=== PATIENT | female | born 1950 | race African-American/Black ===

== ENCOUNTER → 2016-10-13 | Outpatient (CLI) | payer OTHER ==
[~2016-10-13] VITALS: Ht 154.9 cm; Wt 129.7 kg
[~2016-10-13] MED LIST: AMLODIPINE BESY10 MG PO; APAP500 PO; BUTRANS1 EAC2 TD; CARBAMAZEPINE200 M5 PO; CENTRUM SILVER1 EAC4 PO; COUMADIN 1MG TAB1 M1 PO; COUMADIN 5 MG TA5 M1 PO; CYMBALTA30 MG PO; HYDRALAZINE 2525 MG PO; LASIX 40 MG TAB40 M2 PO; LISINOPRIL20 MG PO; NORCO 5-325 TA1 EACH PO; QUESTRAN PACKET4 GM PO; TOPROL XL100 MG PO; VITAMIN B-12500 MCG PO; VITAMIN D1000 UNI1 PO
--- NOTE | ~2016-10-13 | HPC ---
[facility] [place] [address] PAIN MANAGEMENT CONSULTATION Name: JOE VANCE Room #: REG [facility] [id number] Admission: 10/13/16 Attend Phys: Morgan Jacques DO Discharge: Date of : 51 Report #: [id number] THIS REPORT FOR: //name// CC: KIMBERLY Jacques HISTORY: The patient is an unfortunate 65-year-old female who was initially seen in consultation, 08/26/2016. The patient was morbidly obese at the time of that consultation. She had a BMI of 52.9 kilograms per meter squared, was complaining primarily of axial back pain, along with pain in her hips, knees and ankles. I started the patient on Butrans patch to 10 mcg q. 7 days and suggested she continue on her Cymbalta ostensibly at 90 mg a day. 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 She returns to the pain clinic today stating that she did not feel that the Butrans patch worked. On further discussion, it turns out that she likely stopped the Cymbalta altogether, perhaps even before I saw her. She states that it "didn't work". It sounds like she did restart her prior SSRI agent (Zoloft 100 mg). She has continued to gain weight. BMI is now up to 54.1 kilograms per meter squared, up approximately 1.2 kilograms per meter squared. She notes pain is ongoing, an 8/10, low back, buttocks with some left leg and left shoulder pain. She describes a deep burning sensation. PHYSICAL EXAMINATION: GENERAL: Shows 65-year-old female, again morbidly obese at 155 cm and 130 kilograms. VITAL SIGNS: Blood pressure is elevated at 181/86, pulse 83 and respirations are 14. MUSCULOSKELETAL: Rises from chair using armrest. Diffuse tenderness across the low back, little bit in the SI area, though no discrete trigger points are noted. We reviewed her diagnostic findings from last year, thoracic and lumbar MRI, noting expected degenerative changes compatible with age-related loss of height. No dramatic stenosis is noted. Lower extremity strength is preserved. Gait is tandem. Lumbar flexion is limited. RECOMMENDATIONS: Long discussion with the patient today about therapeutic options, lifestyle choices and expectations. I stressed that she should not have abruptly stopped her Cymbalta. I stressed that these are not "pain pills", in that they will give her quick short-term relief, but agents that over time should help decrease pain. Our goal is simply [address] [address] PAIN MANAGEMENT CONSULTATION Name: JOE VANCE Giovana Room #: REG [facility] Va#: [id number] Admission: 10/13/16 Attend Phys: Morgan Jacques DO Discharge: Date of : 51 Report #: [id number] to increase functional ability. Given that the patient is back on Zoloft, I suspect that is adequate, though again the combination SSRI and norepinephrine reuptake inhibitors tend to be better for pain, but I cannot make the patient take medications she does not wish to. I did tell her we will increase her Butrans from 10 to 15 mcg. I stressed that we will not be using a short-acting opiate as they have not been shown to fundamentally improve function in patients with simply chronic axial back pain. Again, we spent a prolonged visit today, mostly spent counseling the patient, discussing mechanism of actions of medications, trying to encourage dietary discretion and increased activity. Given the patient's fairly sedentary lifestyle, if we can just get her to walk 30-40 minutes twice a day, I think that would be a good start for her exercise regimen. I again strongly stressed caloric restriction. We will increase Butrans from 10 to 15 mcg q. 7 days and follow up in 4 weeks for reevaluation. Discharged in good and stable condition after prolonged visit. Greater than 50% of this time spent counseling the patient. The patient was seen from approximately 08:00 a.m. to 08:30. <ELECTRONICALLY SIGNED> By: Morgan Jacques DO 10/14/16 0704 0829 1037 Morgan Jacques DO /nt
[2016-10-13 08:04] VITALS: BP 181/86
== END | disposition home or self-care (01) ==
LOC: PAIN 09-22 07:14
DX: M54.16 Radiculopathy, lumbar region (principal); E66.01 Morbid (severe) obesity due to excess calories; Z68.43 Body mass index [BMI] 50.0-59.9, adult; Z87.891 Personal history of nicotine dependence

== ENCOUNTER → 2016-11-24 | Outpatient (CLI) | payer OTHER ==
[~2016-11-24] VITALS: Ht 157.5 cm; Wt 124.7 kg
[~2016-11-24] MED LIST changes: +ZANAFLEX4 MG PO
--- NOTE | ~2016-11-24 | HPC ---
[facility] [address] [address] PAIN MANAGEMENT CONSULTATION Name: RAJIVJOE Giovana [facility] #: [facility] [id number] Admission: 11/24/16 Attend Phys: Morgan Jacques DO Discharge: Date of : 51 Report #: [id number] THIS REPORT FOR: //name// CC: KIMBERLY Jacques HISTORY OF PRESENT ILLNESS: The patient is a 65-year-old female, prior seen in the pain clinic 10/13/2016, diagnosed with axial back pain, myofascial type pain requiring complex medication management. Last visit, I strongly recommended that patient increase physical activity. We increased Butrans from 10-15 mcg q. 7 days. Trialled resuming Cymbalta, which she had abruptly discontinued in the past. He returns to the pain clinic today noting subjective pain score of 4/10, pain primarily right hip, lateral thigh, chronic low back pain down legs, right greater than left. She "plans" start working out at the gym and doing water aerobics via [employer]. She is taking Cymbalta 30 mg q. 8 hours and continuing with Butrans patch at 15 mcg q. 7 days. She uses a cane in her right hand. DIAGNOSTIC STUDIES: Include x-rays of the thoracic and lumbar spine noting lumbar spondylosis and DISH phenomenon of thoracic spine. PHYSICAL EXAMINATION: Shows obese 65-year-old female, BMI is 50.3 kilograms per meter squared. Vital signs show modest hypertension of 159/95, pulse 78, respirations are 18. Alert and oriented to person, place and time, judged to be a reasonable historian. Rises from chair using armrest, mildly antalgic gait, using a cane in her right hand. Diffuse tenderness across the low back. No discrete trigger points are noted. ASSESSMENT: A 65-year-old female with axial back pain, myofascial pain requiring complex medication management, likely component of DJD affecting bilateral knees. RECOMMENDATION: Long discussion about strongly encouraging patient to move forward with her plans to go to the gym, do water aerobics via her [employer]. Continue Cymbalta 30 mg q. 8 hours, Butrans patch 15 mcg q. 7 days and will trial some tizanidine 4 mg one-half tablet t.i.d. with 1 at bedtime. Follow up in 2 months for reevaluation. <ELECTRONICALLY SIGNED> By: Morgan Jacques DO 11/25/16 1308 [id number] [id number] Morgan Jacques DO /nt
[2016-11-24 09:59] VITALS: BP 159/95
== END | disposition home or self-care (01) ==
LOC: PAIN 11-10 07:02
DX: M17.0 Bilateral primary osteoarthritis of knee (principal); M54.9 Dorsalgia, unspecified; M79.1 Myalgia

== ENCOUNTER → 2017-03-16 | Outpatient (CLI) | payer OTHER ==
[~2017-03-16] VITALS: Ht 157.5 cm; Wt 122.5 kg
[~2017-03-16] MED LIST changes: +CYMBALTA60 MG PO
--- NOTE | ~2017-03-16 | HPC ---
[facility] [place] [address] [address] [place] [address] PAIN MANAGEMENT CONSULTATION Name: RAJIVJOE Giovana [facility] #: [facility] [id number] Admission: 03/16/17 Attend Phys: Morgan Jacques DO Discharge: Date of : 51 Report #: [id number] THIS REPORT FOR: //name// CC: KIMBERLY Jacques DATE OF SERVICE: 03/16/2017 The patient is a 66-year-old female being treated for axial back pain, myofascial pain, neuropathic pain component, requiring complex medication management, history of DJDs affecting bilateral knees. The patient returns to pain clinic today, last visit was 11/24/2016. We continued the patient on Butrans 15 mcg q. 7 days, Cymbalta (this prescription has been taken over by her general cleaner physician) and tizanidine 4 mg one-half tablet t.i.d. with 1 to 1-1/2 at bedtime. The patient did run out of her medicine due to scheduling issues. She is without it for about 2 weeks. She notes in retrospect that the Butrans is helping significantly. She returns to pain clinic today noting pain is about 6 on a VAS. Pain is in the low back, both buttocks and legs. Notes, her left hip is probably the worst, but knees are painful as well. She describes a chronic grinding, deep, sharp, aching sensation, rates this 6 on a VAS. The patient notes the pain is exacerbated with standing, walking and sitting. PHYSICAL EXAMINATION: Shows an obese 66-year-old female, very pleasant with a BMI of 49.4 kilograms per meter squared. She does have some left-sided weakness, status post an old CVA. Blood pressure is 156/76, pulse 86, respirations 22. Uses a cane in her right hand. Rises from chair using armrests, antalgic gait, diffuse tenderness across the low back. No discrete trigger points are noted. 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 She notes that the babies keep her awake during the day. She has no problems with daytime somnolence, mental acuity changes nor constipation. We reviewed the fact that opiate medications are being used to provide analgesia adequate to support activities of daily living, not attempting to achieve a specific pain score on the 0-10 Visual Analog Scale. The current opiate medications are providing sufficient analgesia to allow the patient to participate in activities of daily living. The patient is not exhibiting any aberrant behavior suggestive of drug diversion. The patient is not having any adverse reactions to medications. The patient is not suffering from daytime somnolence or mental acuity changes. The patient is managing opiate-induced [address] [address] PAIN MANAGEMENT CONSULTATION Name: JOE VANCE Room #: REG Jonatan De Dios#: [id number] Admission: 03/16/17 Attend Phys: Morgan Jacques DO Discharge: Date of : 51 Report #: [id number] constipation with appropriate fhju-rwd-kwnqqrx agents and dietary considerations. The patient was counseled on concern for caution with operating a motor vehicle while using opiate medications. A physical exam was performed and the patient's functional status was evaluated. All patients with back pain were advised against the bed rest greater than 4 days and were advised to return to normal activities. Pain score assessment was noted and the treatment plan was reviewed with the patient. All current medications, both prescribed and OTC were reviewed and reconciled on the electronic medical record. Tobacco screening was accomplished and smoking cessation was advised when indicated. BMI was noted and diet/exercise modification was recommended for all patients following outside normal parameters. I reviewed with the patient today their responsibilities to safeguard prescription medications, reviewed their responsibility to utilize medications only as prescribed by the physician. They are to seek and receive pain medications only from 1 physician group ( [facility]). They are to use 1 pharmacy and keep the clinic informed if they change pharmacies. Their responsibilities include making followup visits in a timely fashion and to avoid abrupt discontinuation of medication usage. Their responsibilities further include bringing their medications (bottles from the pharmacy with residual pills) to the visit for possible confirmation of pill counts and the patient understands it is their responsibility to submit to random drug screens to ensure both that the medications prescribed are present, and that no other controlled substances are present. All prescriptions provided today were generated electronically. ASSESSMENT: Neuropathic pain, axial back pain, myofascial pain requiring complex medication management, component of degenerative joint disease bilateral knees. RECOMMENDATION: After discussing with the patient, we would like to continue Butrans 15 mcg q. 7 days, I have taken the liberty of writing for 4 patches with 1 refill, continue tizanidine 4 mg one-half tablet t.i.d. with 1 to 1-1/2 bedtime. Strongly encouraged increased physical activity including returning to water aerobics at [facility] [address]. The patient does note that as she returns to the water aerobics, she is getting a little bit of legs spasm and cramping. She is on Coumadin, so nonsteroidal anti-inflammatory medications are relatively contraindicated. I suggest she trial ecca-sul-iciweqa magnesium. Suggest she talk to the pharmacist regarding an OTC supplement. If this does not afford adequate efficacy with leg spasms, we may consider checking her electrolyte status. Discharged in good and stable condition after a moderately prolonged visit. Spent approximately 25 minutes with the patient today from 8:10-8:35, greater than 50% of the 25-minute visit was spent counseling the patient, reviewing [facility] [address] [place] [address] PAIN MANAGEMENT CONSULTATION Name: JOE VANCE Room #: [facility].#: [id number] Admission: 03/16/17 Attend Phys: Morgan Jacques DO Discharge: Date of : 51 Report #: [id number] therapeutic options, encouraging increased activity, weight reduction and exercise. <ELECTRONICALLY SIGNED> By: Morgan Jacques DO 03/17/17 0809 0832 0849 Morgan Jacques DO /nt
[2017-03-16 08:12] VITALS: BP 156/76
== END | disposition home or self-care (01) ==
LOC: PAIN 02-16 11:01
DX: Z76.0 Encounter for issue of repeat prescription (principal); M17.0 Bilateral primary osteoarthritis of knee; M79.2 Neuralgia and neuritis, unspecified; M54.9 Dorsalgia, unspecified; M79.1 Myalgia; Z79.891 Long term (current) use of opiate analgesic; Z86.73 Personal history of transient ischemic attack (TIA), and cerebral infarction without residual deficits; Z87.891 Personal history of nicotine dependence; Z79.899 Other long term (current) drug therapy; Z79.01 Long term (current) use of anticoagulants

== ENCOUNTER → 2017-04-13 | Outpatient (CLI) | payer OTHER ==
[~2017-04-13] VITALS: Ht 154.9 cm; Wt 123.4 kg
--- NOTE | ~2017-04-13 | HPC ---
[facility] [address] [address] PAIN MANAGEMENT CONSULTATION Name: JOE VANCE Room #: REG [facility] [id number] Admission: 04/13/17 Attend Phys: Morgan Jacques DO Discharge: Date of : 51 Report #: [id number] THIS REPORT FOR: //name// CC: CORNELIO Jacques DATE OF SERVICE: 04/13/2017 The patient is a 66-year-old female, prior seen in the pain clinic on 03/16/2017, being treated for axial back pain, myofascial pain syndrome, neuropathic pain requiring complex medication management. The patient is stable on Butrans 15 mcg q.7 days, tizanidine 4 mg t.i.d. with one and a half at bedtime (4.5 tablets daily). She uses Cymbalta from [facility]. The patient returns to pain clinic today. She is quite distressed. She was told by her pharmacist that Butrans is not going to be covered by her insurance. She uses a cane in her right hand. She has pain in the low back, both buttocks and legs. She tries not to limit her activities secondary to pain. She does not do any heavy lifting and does no specific exercising (she states she does not have a car and cannot get out to exercise), but she does try and stay active around the home. She rates her pain a 5 on VAS, exacerbated with standing and walking. She gets short of breath due to chronic obstructive pulmonary disease. Pulmonary dysfunction perhaps limits her activities even more than pain. Again, she notes she has been remarkably stable on current medication including Butrans patch and tizanidine for spasm. With physical examination relatively unchanged from prior visit, blood pressure modestly elevated at 164/100, pulse 87, respirations 14. Otherwise, again exam is relatively unchanged in this morbidly obese 66-year-old female with a BMI of 51.4 kilograms per meter squared, I am loathe to rotate to a more robust narcotic such as fentanyl. We did spend a good deal of time today, the patient was counseled for greater than 25 minutes, actually in the pain clinic for nearly 45 minutes as we spent a good deal of time with insurance company. Ultimately, we got her Butrans patch renewed, I wrote for another prescription and we will see her back in 2 months. She incidentally does note that she has a little erythema at the patch site when she removes them. I suggested she use hydrocortisone cream 1% to this area. On followup in 2 months for reevaluation, we will make sure to inspect that patch [address] [address] PAIN MANAGEMENT CONSULTATION Name: JOE VANCE Room #: REG [facility] Va#: [id number] Admission: 04/13/17 Attend Phys: Morgan Jacques DO Discharge: Date of : 51 Report #: [id number] area. If it continues to be erythematous, at that point we may look at rotating to a different agent (buprenorphine sublingual?). By: 1536 Morgan Jacques, DO /nt
[2017-04-13 10:17] VITALS: BP 164/100
== END | disposition home or self-care (01) ==
LOC: PAIN 07:04
DX: Z76.0 Encounter for issue of repeat prescription (principal); M54.9 Dorsalgia, unspecified; M79.1 Myalgia; E66.01 Morbid (severe) obesity due to excess calories; J44.9 Chronic obstructive pulmonary disease, unspecified; G89.29 Other chronic pain; Z87.891 Personal history of nicotine dependence; Z68.43 Body mass index [BMI] 50.0-59.9, adult; Z79.01 Long term (current) use of anticoagulants; Z79.899 Other long term (current) drug therapy; Z79.891 Long term (current) use of opiate analgesic

== ENCOUNTER → 2017-08-24 | Outpatient (CLI) | payer OTHER ==
[~2017-08-24] VITALS: Ht 154.9 cm; Wt 120.3 kg
[~2017-08-24] MED LIST changes: +DURAGESIC1 EACH TRANSDERM; +HYDROCODONE-AP1 EAC6 PO; +NEURONTIN 300300 M1 PO; +ZOHYDRO ER10 M1 PO; +ZOHYDRO ER15 M1 PO
--- NOTE | ~2017-08-24 | HPC ---
[facility] [address] [address] PAIN MANAGEMENT CONSULTATION Name: JOE VANCE Room #: [facility] [id number] Admission: 08/24/17 Attend Phys: Morgan Jacques DO Discharge: Date of : 51 Report #: [id number] THIS REPORT FOR: //name// CC: KIMBERLY Jacques The patient is a 66-year-old female, prior seen in the pain clinic 06/22/2017, being treated for axial back pain, myofascial pain requiring high risk complex medication management. 12 Zohydro 10 mg extended release. The patient had prior been stable with a Butrans patch, afforded excellent relief, was exercising regularly. Insurance stopped paying for the patch. We rotated to Zohydro. Returns to the pain clinic today noting that while the medication has been somewhat helpful, she ran out a month ago. Her pain now is back to 10/10. Pain is in the low back, both buttocks and legs, chronic, sharp, constant pain exacerbated with walking, standing and sitting. PHYSICAL EXAMINATION: Shows 5-foot 1-inch, 265-pound female, BMI is 50.1 kilograms per meter squared. She does have osteoarthritis affecting large lower extremity joints including hips and knees. Blood pressure is modestly elevated 178/91, pulse 74. Subjective pain score again 10 on VAS. She has not fallen in the past few months, though she does use a cane to help with assistance. She is hypertensive. Medication list was reconciled. We reviewed her opiate consent to treat contract signed 08/26/2016. Opiate risk assessment tool scores are in moderate to low risk. Again reviewing diagnostic studies, x-rays of the lumbar spine from 01/2016 had noted moderate multilevel degenerative disk disease, advanced facet arthropathy in the lower lumbar spine. The patient rises from the chair today, antalgic gait, diffuse tenderness across the low back. Lower extremity strength is diminished but symmetric. Straight leg raise is negative. Again, the patient had been much more functional, she was going to the [facility], was doing some exercise back when she was using the Duragesic patch. Some frustration with insurance coverage. We ultimately elected to resume the extended release Zohydro. Given that she only had modest relief, we elected to increase to 15 mg. Trial tizanidine 4 mg t.i.d. for spasm. The patient was actually seen for prolonged visit today, greater than 25 minutes were spent reviewing issues and counseling the patient. Unfortunately, the prescription that we gave to her, which was requested by her third green party payer is now not covered, the Zohydro copay cost to the patient is exorbitant. Butrans remains a higher cost the patient cannot afford. [address] [address] PAIN MANAGEMENT CONSULTATION Name: JOE VNACE Room #: REG [facility] De Dios#: [id number] Admission: 08/24/17 Attend Phys: Morgan Jacques DO Discharge: Date of : 51 Report #: [id number] Ultimately, we reluctantly decided to move forward with a low dose Duragesic at 12 mcg with tizanidine for breakthrough pain. Again, primarily treating axial back pain, myofascial pain component. History of lumbar spondylosis requiring high risk complex medication management. The patient encouraged to resume exercise at the [facility]. She was doing range of motion and some, I believe, water aerobics as well. Continue walking with a cane for fear of falling, she uses this mostly for balance rather than "offloading weight." Follow up in 1 month to evaluate efficacy of medication changes. Discharged in good and stable condition after a 25+-minute visit spent counseling the patient, reviewing therapeutic options, discussing insurance copays, risks, benefits and counseling the patient. <ELECTRONICALLY SIGNED> By: Morgan Jacques DO 08/28/17 0715 1137 1403 Morgan Jacques DO /nt
[2017-08-24 14:34] VITALS: BP 178/91
== END ==
LOC: PAIN 07-13 06:57
DX: M54.9 Dorsalgia, unspecified (principal); Z79.891 Long term (current) use of opiate analgesic

== ENCOUNTER → 2017-09-07 | Outpatient (CLI) | payer OTHER ==
[~2017-09-07] VITALS: Ht 154.9 cm; Wt 120.7 kg
--- NOTE | ~2017-09-07 | HPC ---
[facility] [address] [place] [address] PAIN MANAGEMENT CONSULTATION Name: JOE VANCE Room #: [facility] [id number] Admission: 09/07/17 Attend Phys: Morgan Jacques DO Discharge: Date of : 52 Report #: [id number] THIS REPORT FOR: //name// CC: KIMBERLY Jacques The patient is a 66-year-old female, typically treated for axial back pain, myofascial pain, requiring complex medication management. Last seen in pain clinic on 08/24/2017. We had a prolonged visit at that time trying to find an agent that her insurance company would pay for. We tried Zohydro ER 10 mg, was efficacious, we wrote for 15 mg as she did have suboptimal control. Ultimately, insurance company agreed to pay for Duragesic at 12 mcg with tizanidine for breakthrough pain. Returns to pain clinic today. We again had a prolonged visit. The patient notes that the Duragesic was helpful for a period of time, but starting last week without antecedent trauma and overuse, she developed acute pain in the low back, radiating down the posterior aspect of both legs with an electric sharp sensation. She rates her current pain is 9 on a VAS. She did present to the ER at another hospital. MRI was obtained on 08/30/2017. We reviewed those findings today, the patient has severe spinal stenosis at L3-L4 secondary to circumferential disk bulging, severe facet arthrosis and ligamentum flavum hypertrophy. Moderate to severe disease noted at multiple other levels. L4-L5 shows severe facet arthropathy, moderate severe stenosis, bilateral neural foraminal narrowing. L5-S1 notes moderate facet arthropathy, no significant spinal stenosis noted, moderate left and mild right neural foraminal narrowing. Symptoms appear to be primarily posterior leg in an L5 pattern. The patient denies bowel or bladder continence changes. She does have subjective weakness. She currently is anticoagulated due to a porcine aortic valve replacement about a decade ago. She has been off of anticoagulants for dental procedures in the past. PHYSICAL EXAMINATION: Shows a morbidly obese 66-year-old female, BMI is 50.3 kilograms per meter squared. Blood pressure is modestly elevated at 164/89, pulse 94, respirations 16. Markedly antalgic gait. Lower extremity strength is diminished, but symmetric. Positive straight leg raise, right greater than left. Patellar reflexes are absent. Achilles reflexes are absent on the right, 1/4 on the left. We reviewed the fact that opiate medications are being used to provide analgesia adequate to support activities of daily living, not attempting to achieve a specific pain score on the 0-10 Visual Analog Scale. The current opiate medications are providing sufficient analgesia to allow the patient to participate in activities of daily living. The [place] [address] PAIN MANAGEMENT CONSULTATION Name: JOE VANCE Room #: REG CLJonatan De Dios#: [id number] Admission: 09/07/17 Attend Phys: Morgan Jacques DO Discharge: Date of : 52 Report #: [id number] aberrant behavior suggestive of drug diversion. The patient is not having any adverse reactions to medications. The patient is not suffering from daytime somnolence or mental acuity changes. The patient is managing opiate-induced constipation with appropriate qgnv-dtg-xrbxyio agents and dietary considerations. The patient was counseled on concern for caution with operating a motor vehicle while using opiate medications. A physical exam was performed and the patient's functional status was evaluated. All patients with back pain were advised against the bed rest greater than 4 days and were advised to return to normal activities. Pain score assessment was noted and the treatment plan was reviewed with the patient. All current medications, both prescribed and OTC were reviewed and reconciled on the electronic medical record. Tobacco screening was accomplished and smoking cessation was advised when indicated. BMI was noted and diet/exercise modification was recommended for all patients following outside normal parameters. I reviewed with the patient today their responsibilities to safeguard prescription medications, reviewed their responsibility to utilize medications only as prescribed by the physician. They are to seek and receive pain medications only from 1 physician group ( [facility]). They are to use 1 pharmacy and keep the clinic informed if they change pharmacies. Their responsibilities include making followup visits in a timely fashion and to avoid abrupt discontinuation of medication usage. Their responsibilities further include bringing their medications (bottles from the pharmacy with residual pills) to the visit for possible confirmation of pill counts and the patient understands it is their responsibility to submit to random drug screens to ensure both that the medications prescribed are present, and that no other controlled substances are present. All prescriptions provided today were generated electronically. ASSESSMENT: Symptomatic lumbar radiculopathy secondary to spinal stenosis, relatively new diagnosis with chronic axial back pain and myofascial pain, requiring high risk complex medication management. RECOMMENDATIONS: Continue Duragesic 12 mcg q. 72 hours. We will start gabapentin 300 mg b.i.d. We will move forward with epidural injection under fluoroscopy, off Coumadin for 5 days at next visit. The patient is discharged in good and stable condition after prolonged visit, approximately 30 minutes was spent reviewing acute interval changes and discussing current therapeutic options. <ELECTRONICALLY SIGNED> By: Morgan Jacques DO 09/08/17 [id number] Morgan Jacques DO /nt
[2017-09-07 14:50] VITALS: BP 164/89
== END ==
LOC: PAIN 07:18
DX: M54.16 Radiculopathy, lumbar region (principal); G89.29 Other chronic pain; M79.1 Myalgia; Z79.899 Other long term (current) drug therapy